=== PATIENT | female | born 1990 | race Caucasian/White ===

== ENCOUNTER 2022-04-20 10:03 | Emergency (ER) | payer MEDICAID ==
[~2022-04-20] VITALS: Ht 157.5 cm; Wt 70.5 kg
[2022-04-20 10:06] VITALS: BP 100/76
[2022-04-20] MEDS ORDERED: NACL 0.9% 1,000 ML IV ONE (10:15)
[2022-04-20] MEDS ORDERED: ONDANSETRON 4 MG/2 ML VIAL IVP ONE (10:15)
[2022-04-20] MEDS ORDERED: DIPHENOXYLATE /ATROPINE 2.5 MG TAB PO ONE (10:15)
[2022-04-20] MEDS ORDERED: FAMOTIDINE 20 MG/2 ML VIAL IVP ONE (10:15)
--- NOTE | 2022-04-20 10:20 | NUR ---
18 IV ESTABLISHED IN L AC. BLOOD WORK COLLECTED AND HANDED TO [facility]
[2022-04-20 10:34] LABS: BASOPHILS % (AUTO) 0.5 % (0.0-2.0); HEMATOCRIT 34.8 % (36-48); HEMOGLOBIN 11.6 g/dL (12.0-16.0); LYMPHOCYTES # (AUTO) 0.8 K/uL (2.5-16.5); LYMPHOCYTES % (AUTO) 11.6 % (20.5-51.1); MEAN CORPUSCULAR HEMOGLOBIN 27 pg (27-31); MEAN CORPUSCULAR HGB CONC 33 g/dL (33-37); MEAN CORPUSCULAR VOLUME 80.4 fL (80-94); MONOCYTES # (AUTO) 0.3 K/uL (0.8-1.0); MONOCYTES % (AUTO) 5.2 % (1.7-9.3); NEUTROPHILS # (AUTO) 5.4 K/uL (1.8-7.7); NEUTROPHILS % (AUTO) 82.7 % (42.2-75.2); PLATELET COUNT (AUTO) 237 K/uL (140-450); RED BLOOD CELL COUNT(AUTO) 4.33 MIL/uL (4.20-5.40); RED CELL DISTRIBUTION WIDTH 15.6 % (11.6-13.7); WHITE BLOOD COUNT (AUTO) 6.5 K/uL (4.8-10.8)
--- NOTE | 2022-04-20 10:34 | NUR ---
31Y FEMALE BIB SELF DUE TO ABDOMINAL PAIN, NAUSEA AND DIARRHEA X3 DAYS. PER PATIENT THE ABDOMINAL PAIN IS FELT IN THE MID ABDOMEN AND DOES NOT RADIATE ELSEWHERE. PT DENIES ANY VOMITTING AT THIS TIME. ABDOMEN IS SOFT AND NON-TENDER, BUT TENDERNESS NOTED ON MID ABDOMEN WHERE PAIN IS FELT. PAIN IS CURRENTLY 8/10 AND CRAMPING LIKE PAIN. PT IS A&OX4, EQUAL CHEST RISE AND FALL NOTED. NO SIGNS OF RESP DISTRESS. DENIES CP, FEVER/CHILLS, SOB. PT PLACED IN GOWN AND BEDSIDE MONITOR. PT COVERED WITH BLANKET AND POSITONED FOR COMFORT. IV ACESS OBTAINED IN L AC PMH: DENIES NKA
[2022-04-20 11:01] LABS: ANION GAP 12.2 (8-16); CARBON DIOXIDE 25.9 mmol/L (21-32); CREATININE 0.7 mg/dL (0.6-1.3); POTASSIUM 3.1 mmol/L (3.5-5.1); TOTAL BILIRUBIN 0.4 mg/dL (0.0-1.0)
[2022-04-20] MEDS ORDERED: MAGNESIUM OXIDE 400 MG TAB PO ONE (11:25)
[2022-04-20] MEDS ORDERED: POTASSIUM CHLORIDE 10 MEQ TABER PO ONE (11:25)
--- NOTE | 2022-04-20 12:08 | NUR ---
PT AMBULATED TO RESTROOM WITH STEADY GAIT
--- NOTE | 2022-04-20 12:25 | NUR ---
Patient appears to be resting comfortably in bed. Vital Signs within normal limits. Respirations even and unlabored.
[2022-04-20] MEDS ORDERED: ATRO1TAB PO (12:33)
[2022-04-20] MEDS ORDERED: ONDA-188 PO (12:33)
[2022-04-20 13:02] VITALS: BP 111/52
--- NOTE | 2022-04-20 13:02 | NUR ---
Patient discharged with v/s stable. Written and verbal after care instructions given and explained. Patient alert, oriented and verbalized understanding of instructions. Ambulatory with steady gait. All questions addressed prior to discharge. ID band removed. Patient advised to follow up with PMD. Rx of ZOFRAN,ATROPINE given. Patient educated on indication of medication including possible reaction and side effects. Opportunity to ask questions provided and answered.
== END 2022-04-20 13:02 | disposition home or self-care (01) ==
LOC: MED 10:03
DX: R19.7 Diarrhea, unspecified (principal); R11.0 Nausea; R50.9 Fever, unspecified; R53.1 Weakness; R42 Dizziness and giddiness; R10.9 Unspecified abdominal pain; Z79.899 Other long term (current) drug therapy
CPT/HCPCS: 36415; 80053; 81002; 81025; 83690; 85025; 96361; 96374; 96375; 99284; J2405; J3490; J7030

== ENCOUNTER 2023-05-06 20:27 | Emergency (ER) | payer MEDICAID ==
[~2023-05-06] VITALS: Ht 160 cm; Wt 81.6 kg
[~2023-05-06 20:27] MED LIST: ATRO1TAB PO; ONDA-188 PO
[2023-05-06 20:40] VITALS: BP 133/79
--- NOTE | 2023-05-06 20:43 | NUR ---
TO LOBBY A/W BED AMBULATORY
[2023-05-06 20:45] VITALS: BP 133/79
--- NOTE | 2023-05-06 21:08 | NUR ---
Patient being evaluated by DR. JORDAN at bedside.
--- NOTE | 2023-05-06 21:50 | NUR ---
IRRIGATION OF L EAR DONE. PT TOLERATED WELL. DENIES DIZZINESS
--- NOTE | 2023-05-06 21:51 | NUR ---
PT PENDING DISPO
[2023-05-06] MEDS ORDERED: IBUP-2213 PO (21:52)
--- NOTE | 2023-05-06 21:57 | NUR ---
Patient discharged with v/s stable. Written and verbal after care instructions given and explained. Patient verbalized understanding. Ambulatory with steady gait. All questions addressed prior to discharge. Advised to follow up with PMD.
== END 2023-05-06 21:57 | disposition home or self-care (01) ==
LOC: MED 20:27
DX: H61.22 Impacted cerumen, left ear (principal); J34.89 Other specified disorders of nose and nasal sinuses; Z79.899 Other long term (current) drug therapy
CPT/HCPCS: 99282